=== PATIENT | female | born 1970 ===

== ENCOUNTER 2018-04-26 18:51 | Emergency (ER) | payer SELFPAY ==
[2018-04-26 19:11] VITALS: BP 174/104
--- NOTE | 2018-04-26 21:10 | XRay Report ---
FINAL REPORT PROCEDURE: XR SHOULDER 2+V RT TECHNIQUE: Right shoulder radiographs including AP views in internal and external rotation and abduction. CPT 13919 HISTORY: chronic pain with decreased ROM COMPARISON: No prior studies are available for comparison. FINDINGS: Fracture (s) and/or Dislocation(s): None . Joint space(s): Narrowing of the atlantoaxial joint space is noted with mild degree osteophyte formation.. Soft tissues: Normal . Bone mineralization: Normal . Foreign bodies: None . IMPRESSION: No acute fracture Osteoarthritis right acromioclavicular joint
== END 2018-04-26 22:00 | disposition left against medical advice (07) ==
LOC: ED 18:51
DX: M25.511 Pain in right shoulder (principal); Z53.21 Procedure and treatment not carried out due to patient leaving prior to being seen by health care provider